=== PATIENT | female | born 2000 | race American Indian/Alaskan Native ===

== ENCOUNTER 2019-05-16 04:28 | Emergency (ER) | payer MEDICAID ==
[2019-05-16] MEDS: Lactated Ringers 1,000 ML IV SCH ×2 (04:52→06:06)
[2019-05-16] MEDS: Ketorolac 30 MG/ML SDV IVPUSH ONE (05:06)
[2019-05-16 05:29] LABS: CHLORIDE,CL 105 mEq/L (98-106); SODIUM,NA 141 mEq/L (136-145)
[2019-05-16] MEDS: Iopamidol 612 MG/ML 100 ML Bottle IVPUSH ONE (05:55)
[2019-05-16] MEDS: cefTRIAXone 1 GM Vial IVPUSH ONE (06:06)
[2019-05-16] MEDS: Sodium Chloride 0.9% 10 ML Syringe ONE (06:20)
[2019-05-16] MEDS: cefTRIAXone 1 GM Vial IVPUSH SCH (06:20)
[2019-05-16 08:23] VITALS: BP 100/49; PULSE 75
--- NOTE | 2019-05-16 08:37 | EDM.PDOC ---
ED HPI GENERAL MEDICAL PROBLEM - General Chief Complaint: Back Pain or Injury Stated Complaint: back pain Time Seen by Provider: 05/16/19 05:00 Source of Information: Reports: Patient History Limitations: Reports: No Limitations - History of Present Illness INITIAL COMMENTS - FREE TEXT/NARRATIVE: Nannette is a 18 year old female who presents to the ED with c/o bilateral flank pain, R > L. She reports that starting 05/14/2019 she began having flank pain. She reports that for the majority of the day yesterday she slept. She reports that throughout the night last night her pain seemed to worsen, to the point where it became unbearable, prompting ED visit. She reports that certain movements aggravate pain. She denies any injury. She reports that she has been taking Tylenol and ibuprofen as needed for pain, but it does not seem to be improving. She reports she did take a hot shower and this seemed to help pain. She denies any nausea, vomiting, diarrhea, constipation, dysuria, frequency, urgency, hematuria, fever, or chills. Denies any history of kidney stones or UTIs. She does report she has not eaten or drank much the last few days. She reports she was unable to sleep last night due to the pain. She has no significant PMH. Denies any drug or ETOH use. Does report she occasionally smokes a cigarette, but nothing regularly. Onset Date: 05/14/19 Duration: Getting Worse Location: Reports: Back (flank) Quality: Reports: Ache, Sharp Severity: Severe Improves with: Reports: Heat Therapy, Medication Worsens with: Reports: Movement Associated Symptoms: Reports: Loss of Appetite. Denies: Confusion, Chest Pain, Cough, cough w sputum, Diaphoresis, Fever/Chills, Headaches, Malaise, Nausea/ Vomiting, Seizure, Shortness of Breath, Syncope, Weakness Bilateral Lower Back Pain Score (Numeric/FACES): 10 - Related Data Allergies Allergy/AdvReac Type Severity Reaction Status Date / Time No Known Allergies Allergy Verified 05/16/19 04:31 Home Meds: Home Meds Ketorolac [Toradol] 10 mg PO Q6H PRN #15 tab 05/16/19 [Rx] Nitrofurantoin Monohyd/M-Cryst [Macrobid 100 mg Capsule] 100 mg PO BID #14 capsule 05/16/19 [Rx] Past Medical History - Past Health History Medical/Surgical History: Denies Medical/Surgical History HEENT History: Reports: None Cardiovascular History: Reports: None Respiratory History: Reports: Other (See Below) Other Respiratory History: Reactive airway disease Gastrointestinal History: Reports: None Genitourinary History: Reports: None 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: Musculoskeletal History: Reports: Other (See Below) Other Musculoskeletal History: patella femoral syndroma Neurological History: Reports: None Psychiatric History: Reports: None Endocrine/Metabolic History: Reports: None Hematologic History: Reports: None Immunologic History: Reports: None Oncologic (Cancer) History: Reports: None Dermatologic History: Reports: None - Infectious Disease History Infectious Disease History: Reports: None - Past Surgical History Head Surgeries/Procedures: Reports: None Social & Family History - Family History Family Medical History: Noncontributory - Tobacco Use Smoking Status *Q: Current Every Day Smoker Years of Tobacco use: 2 Packs/Tins Daily: 1 - Caffeine Use Caffeine Use: Reports: Coffee - Recreational Drug Use Recreational Drug Use: No ED ROS GENERAL - Review of Systems Review Of Systems: ROS reveals no pertinent complaints other than HPI. Constitutional: Reports: Decreased Appetite. Denies: Fever, Chills, Weakness, Fatigue HEENT: Reports: No Symptoms Respiratory: Reports: No Symptoms. Denies: Shortness of Breath, Wheezing, Pleuritic Chest Pain, Cough, Sputum Cardiovascular: Reports: No Symptoms. Denies: Chest Pain, Dyspnea on Exertion, Edema, Lightheadedness, Palpitations, Syncope Endocrine: Reports: No Symptoms GI/Abdominal: Reports: Decreased Appetite. Denies: Abdominal Pain, Constipation , Diarrhea, Nausea, Vomiting : Reports: Flank Pain. Denies: Discharge, Dysuria, Frequency, Hematuria, Incontinence, Urgency, Urinary Retention Musculoskeletal: Reports: Back Pain (bilateral flank) Skin: Reports: No Symptoms Neurological: Denies: Confusion, Dizziness, Headache, Numbness, Tingling, Weakness ED EXAM, RENAL/ - Physical Exam Exam: See Below Exam Limited By: No Limitations General Appearance: Alert, WD/WN, Mild Distress Throat/Mouth: Normal Inspection, Normal Lips, Normal Teeth, Normal Gums, Normal Oropharynx, Normal Voice, No Airway Compromise Head: Atraumatic, Normocephalic Neck: Normal Inspection, Supple, Non-Tender, Full Range of Motion Respiratory/Chest: No Respiratory Distress, Lungs Clear, Normal Breath Sounds, No Accessory Muscle Use, Chest Non-Tender Cardiovascular: Normal Peripheral Pulses, Regular Rate, Rhythm, No Edema, No Gallop, No JVD, No Murmur, No Rub GI/Abdominal: Normal Bowel Sounds, Soft, Non-Tender, No Organomegaly, No Distention, Pelvis Stable. No: Guarding, Rigid, Rebound, Tender Back Exam: Normal Inspection, Full Range of Motion, CVA Tenderness (L), CVA Tenderness (R). No: Muscle Spasm, Paraspinal Tenderness, Vertebral Tenderness Extremities: Normal Inspection, Normal Range of Motion, Non-Tender, Normal Capillary Refill, No Pedal Edema Neurological: Alert, Oriented, CN II-XII Intact, Normal Cognition, Normal Gait, Normal Reflexes, No Motor/Sensory Deficits Psychiatric: Normal Affect, Normal Mood Skin Exam: Warm, Dry, Intact, Normal Color, No Rash Course - Vital Signs Last Recorded V/S: Last Vital Signs Temp 99 F 05/16/19 08:00 Pulse 75 05/16/19 08:00 Resp 16 05/16/19 08:00 BP 100/49 L 05/16/19 08:00 Pulse Ox 100 05/16/19 08:00 - Orders/Labs/Meds Orders: Active Orders 24 hr Category Date Time Status Abdomen Pelvis w wo Cont [CT] Stat Exams 05/16/19 05:26 Taken CULTURE URINE [RM] Stat Lab 05/16/19 04:53 Received Labs: Laboratory Tests 05/16/19 05/16/19 05/16/19 Range/Units 04:53 05:00 05:00 WBC 14.0 H (5.0-10.0) 10^3/uL RBC 4.22 (4.00-5.50) 10^6/uL Hgb 12.1 (12.0-16.0) g/dL Hct 36.5 L (37.0-47.0) % MCV 86.5 (82.0-94.0) fL MCH 28.7 (27.0-32.0) pg MCHC 33.2 (33.0-38.0) g/dL RDW Coeff of Katar[place] 14.3 (11.0-15.0) % Plt Count 198 (150-400) 10^3/uL Neut % (Auto) 80.5 (35-85) % Lymph % (Auto) 9.9 L (10-55) % [place] % (Auto) 9.1 (0-16) % Eos % (Auto) 0.4 (0-5) % Baso % (Auto) 0.1 (0-3) % Neut # (Auto) 11.27 H (1.80-7.00) 10^3/uL Lymph # (Auto) 1.38 (1.00-4.80) 10^3/uL [place] # (Auto) 1.28 H (0.00-0.80) 10^3/uL Eos # (Auto) 0.05 (0.00-0.45) 10^3/uL Baso # (Auto) 0.01 10^3/uL Sodium (136-145) mEq/L Potassium (3.5-5.0) mEq/L Chloride (98-106) mEq/L Carbon Dioxide (21-32) mmol/L BUN (7-18) mg/dL Creatinine (0.6-1.0) mg/dL Est Cr Clr Drug Dosing mL/min Estimated GFR (MDRD) (>=60) mL/min Glucose (75-99) mg/dL Calcium (8.4-10.1) mg/dL Total Bilirubin (0.0-1.0) mg/dL AST (15-37) U/L ALT (12-78) U/L Alkaline Phosphatase (46-116) U/L C-Reactive Protein (0.2-0.8) mg/dL Total Protein (6.4-8.2) g/dL Albumin (3.4-5.0) g/dL Amylase (25-115) U/L Lipase (73-393) U/L HCG, Qual Negative Urine Color Yellow (YELLOW) Urine Appearance Slightly cloudy (CLEAR) Urine pH 7.5 (4.5-8.0) Ur Specific [place] 1.025 H (1.003-1.020) Urine Protein >=300 H (NEGATIVE) mg/dL Urine Glucose (UA) Negative (NEGATIVE) mg/dL Urine Ketones Negative (NEGATIVE) mg/dL Urine Occult Blood Large H (NEGATIVE) Urine Nitrite Positive H (NEGATIVE) Urine Bilirubin Negative (NEGATIVE) Urine Urobilinogen 1.0 (0.2-1.0) EU/dL Ur Leukocyte Esterase Moderate H (NEGATIVE) Urine RBC 75-100 H (0-5) /HPF Urine WBC 75-100 H (0-5) /HPF Ur Squamous Epith Cells Occasional H (NOT SEEN) /HPF Urine Bacteria Moderate H (NOT SEEN) /HPF 05/16/19 Range/Units 05:00 WBC (5.0-10.0) 10^3/uL RBC (4.00-5.50) 10^6/uL Hgb (12.0-16.0) g/dL Hct (37.0-47.0) % MCV (82.0-94.0) fL MCH (27.0-32.0) pg MCHC (33.0-38.0) g/dL RDW Coeff of [place]arina (11.0-15.0) % Plt Count (150-400) 10^3/uL Neut % (Auto) (35-85) % Lymph % (Auto) (10-55) % [place] % (Auto) (0-16) % Eos % (Auto) (0-5) % Baso % (Auto) (0-3) % Neut # (Auto) (1.80-7.00) 10^3/uL Lymph # (Auto) (1.00-4.80) 10^3/uL [place] # (Auto) (0.00-0.80) 10^3/uL Eos # (Auto) (0.00-0.45) 10^3/uL Baso # (Auto) 10^3/uL Sodium 141 (136-145) mEq/L Potassium 3.9 (3.5-5.0) mEq/L Chloride 105 (98-106) mEq/L Carbon Dioxide 27 (21-32) mmol/L BUN 9 (7-18) mg/dL Creatinine 0.7 (0.6-1.0) mg/dL Est Cr Clr Drug Dosing 110.16 mL/min Estimated GFR (MDRD) > 60 (>=60) mL/min Glucose 100 H (75-99) mg/dL Calcium 9.2 (8.4-10.1) mg/dL Total Bilirubin 1.2 H (0.0-1.0) mg/dL AST 11 L (15-37) U/L ALT 8 L (12-78) U/L Alkaline Phosphatase 74 (46-116) U/L C-Reactive Protein 1.2 H (0.2-0.8) mg/dL Total Protein 7.6 (6.4-8.2) g/dL Albumin 4.0 (3.4-5.0) g/dL Amylase 50 (25-115) U/L Lipase 56 L (73-393) U/L HCG, Qual Urine Color (YELLOW) Urine Appearance (CLEAR) Urine pH (4.5-8.0) Ur Specific [place] (1.003-1.020) Urine Protein (NEGATIVE) mg/dL Urine Glucose (UA) (NEGATIVE) mg/dL Urine Ketones (NEGATIVE) mg/dL Urine Occult Blood (NEGATIVE) Urine Nitrite (NEGATIVE) Urine Bilirubin (NEGATIVE) Urine Urobilinogen (0.2-1.0) EU/dL Ur Leukocyte Esterase (NEGATIVE) Urine RBC (0-5) /HPF Urine WBC (0-5) /HPF Ur Squamous Epith Cells (NOT SEEN) /HPF Urine Bacteria (NOT SEEN) /HPF Meds: Medications Discontinued Medications Generic Name Dose Route Start Last Admin Trade Name Freq PRN Reason Stop Dose Admin Ceftriaxone Sodium 1 gm 05/16/19 05:45 05/16/19 06:20 Rocephin IVPUSH Not Given Q24H KAYLYNN Ceftriaxone Sodium 1 gm 05/16/19 05:38 05/16/19 06:06 Rocephin IVPUSH 05/16/19 05:39 1 gm ONETIME ONE Administration Lactated Ringer's 1,000 mls @ 999 mls/hr 05/16/19 04:45 05/16/19 04:52 Ringers, Lactated IV 999 mls/hr ASDIRECTED KAYLYNN Administration Lactated Ringer's 1,000 mls @ 125 mls/hr 05/16/19 06:00 05/16/19 06:06 Ringers, Lactated IV 125 mls/hr ASDIRECTED KAYLYNN Administration Iopamidol 100 ml 05/16/19 05:36 05/16/19 05:55 Isovue-300 (61%) IVPUSH 05/16/19 05:37 100 ml ONETIME ONE Administration Ketorolac Tromethamine 30 mg 05/16/19 04:38 05/16/19 05:06 Toradol IVPUSH 05/16/19 04:39 30 mg ONETIME ONE Administration Sodium Chloride Confirm 05/16/19 04:36 05/16/19 06:20 Saline Flush Administered 05/16/19 04:37 Not Given Dose 10 ml .ROUTE .STK-MED ONE - Radiology Interpretation Free Text/Narrative:: Negative for renal calculi or obvious pyelonephritis. CT Results Date: 05/16/19 CT Results Time: 08:00 - Re-Assessments/Exams Free Text/Narrative Re-Assessment/Exam: Patient was given 30 mg Toradol, which did improve pain from 06/15 to 12/14. Labs were significant for WBC of 14,000 and positive UA. Opted to proceed with CT abdomen/pelvis to r/o kidney stone. She was kept in SDC awaiting CT abdomen/ pelvis results. Did receive total of 1500 mLs LR and [address] was negative for acute findings. Patient appear more comfortable. Will be discharged home on oral antibiotics and Toradol to be used as needed for pain. 05/16/19 17:19 Departure - Departure Time of Disposition: 08:33 Disposition: Home, Self-Care 01 Condition: Fair Clinical Impression: Pyelonephritis - Discharge Information *PRESCRIPTION DRUG MONITORING PROGRAM REVIEWED*: Not Applicable *COPY OF PRESCRIPTION DRUG MONITORING REPORT IN PATIENT KAS[place]: Not Applicable Prescriptions: Ketorolac [Toradol] 10 mg PO Q6H PRN #15 tab PRN Reason: Pain Nitrofurantoin Monohyd/M-Cryst [Macrobid 100 mg Capsule] 100 mg PO BID #14 capsule Instructions: Pyelonephritis, Adult, [id number] Referrals: Olu Frankel MD [Primary Care Provider] - Forms: ED Department Discharge Additional Instructions: - Macrobid (nitrofurantoin) twice daily x 7 days - Toradol every 6 hours as needed for pain. No NSAID (ibuprofen, Aleve, etc) while taking this. Can alternate with Tylenol (acetaminophen) as needed for pain - Heat to affected area as needed for comfort - Rest and push fluids until symptoms improve - We will call you with urine culture results once available to ensure you are on appropriate antibiotic. - If symptoms worsen, recommend follow up with PCP for recheck - My Orders Last 24 Hours: My Active Orders 05/16/19 04:53 CULTURE URINE [RM] Stat 05/16/19 05:26 Abdomen Pelvis w wo Cont [CT] Stat - Assessment/Plan Last 24 Hours: My Active Orders 05/16/19 04:53 CULTURE URINE [RM] Stat 05/16/19 05:26 Abdomen Pelvis w wo Cont [CT] Stat
== END 2019-05-16 10:24 | disposition home or self-care (01) ==
LOC: CC.ED 04:28
DX: N12 Tubulo-interstitial nephritis, not specified as acute or chronic (principal); F17.210 Nicotine dependence, cigarettes, uncomplicated
CPT/HCPCS: 36415; 74178; 80053; 81001; 82150; 83690; 84703; 85025; 86140; 87086; 87088; 87186; 96361; 96374; 96375; 99284-25; J0696; J1885; J7120; Q9967